=== PATIENT | female | born 1960 | race Caucasian/White ===

== ENCOUNTER → 2017-04-15 | Outpatient (CLI) | payer OTHER ==
[2016-01-29 15:49] VITALS: BP 103/66
[~2017-04-15] MED LIST: ACET325T9 PO; ALBU8.5H6 IH; ALPR1TAB2 PO; ARIP2TAB35 PO; BUSP10TA PO; CLON1TAB PO; DIAZ5TAB PO; DIPH25CA58 PO; FLUT1DIS3 IH; GABA-586 PO; Guaifenesin/Dextromethorphan PO; HYDR-971 PO; INSU100I17 SQ; LAMO5TB.2 PO; LISI10TA PO; METF500T PO; MONT10TA9 PO; NAPR220C4 PO; OXYC5CAP PO; OXYC5TAB95 PO; PANT40TA3 PO; POTA10TA10 PO; PRED-220 PO; QUET25TA5 PO; QUET300T5 PO; QUET400T6 PO; SIMV20TA PO; TIOT18CA IH
--- NOTE | 2017-04-15 11:29 | RAD ---
Examination: 3 views of the right shoulder History: History of right shoulder pain Comparison: None available Findings: The humeral head is within the glenoid. There is mild joint space loss identified in the acromioclavicular joint and glenohumeral joint. Small inferior osteophyte formation identified in the distal clavicle. Impression: 1. Mild degenerative changes acromioclavicular joint and the glenohumeral joint.
--- NOTE | 2017-04-15 12:01 | RAD ---
EXAM: Cervical spine 4 views. HISTORY: Cervical radiculopathy. Right shoulder pain. COMPARISON: None. FINDINGS: There is mild anterolisthesis at C4-C6. No fractures are identified. There is no prevertebral soft tissue swelling. Intervertebral disc heights are maintained. Facet osteoarthritis is moderate to severe, worst at C4-C6. A metallic object projecting over the cervical spine may be in the patient's hair. There are atherosclerotic calcifications of the aorta. IMPRESSION: 1. Mild retrolisthesis from C4 through C6, likely from facet osteoarthritis.
== END | disposition home or self-care (01) ==
LOC: DXRADRC 11:03
PROVIDERS: ATTEND Nurse Practitioner Family
DX: M54.2 Cervicalgia (principal); M25.511 Pain in right shoulder; I70.0 Atherosclerosis of aorta
CPT/HCPCS: 72040; 73030